=== PATIENT | male | born 1960 | race Caucasian/White ===

== ENCOUNTER 2021-08-11 12:04 | Inpatient (IN) | payer OTHER ==
[2021-08-11] MEDS ORDERED: ACETAMINOPHEN TAB 500 MG TAB PO STA (12:22)
--- NOTE | 2021-08-11 12:24 | ED ---
General Adult HPI - General Stated complaint: Detox, SOB, possible Covid Time Seen by Provider: 08/11/21 12:05 Source: patient, RN notes reviewed, old records reviewed - History of Present Illness Initial comments: This is a 61-year-old male who presents emergency Department complaining of being short of breath and coughing up blood for the last month or 2. Patient states he is a heavy drinker and went to rehab today but because of his symptoms a sent to the emergency department. Patient states she also continues to smoke. Patient states she supposed to be on Xarelto for previous blood clots and he takes blood pressure medications. Patient states he does not take any of his medications at all when he is drinking and he has been drinking quite a bit with his last drink sometime this morning. Patient denies any chest pain or palpitations. Patient states he has been coughing quite a bit and again occasionally coughs up some blood. Patient also states he's been somewhat short of breath especially with some exertion. Patient states ambulance told me 101 fever even though we do not have a fever in the emergency room. Patient denies any abdominal pain he denies nausea vomiting. Patient denies diarrhea. While lying in bed right now he states he just doesn't feel good and overall has no specific area of pain. - Related Data Allergies Allergy/AdvReac Type Severity Reaction Status Date / Time No Known Allergies Allergy Verified 08/11/21 13:25 Review of Systems ROS Statement: Those systems with pertinent positive or pertinent negative responses have been documented in the HPI. ROS Other: All systems not noted in ROS Statement are negative. General Exam - General Exam Comments Initial Comments: GENERAL: Patient is well-developed and well-nourished. Patient is nontoxic and well- hydrated and is in no acute distress. Patient smells of alcohol. ENT: Neck is soft and supple. No significant lymphadenopathy is noted. Oropharynx is clear. Moist mucous membranes. Neck has full range of motion without eliciting any pain. EYES: The sclera were anicteric and conjunctiva were pink and moist. Extraocular movements were intact and pupils were equal round and reactive to light. Eyelids were unremarkable. PULMONARY: Unlabored respirations. Good breath sounds bilaterally. No audible rales rhonchi or wheezing was noted. CARDIOVASCULAR: There is a regular rate and rhythm without any murmurs gallops or rubs. ABDOMEN: Soft and nontender with normal bowel sounds. SKIN: Skin is clear with no lesions or rashes and otherwise unremarkable. NEUROLOGIC: Patient is alert and oriented x3. Cranial nerves II through XII are grossly intact. Motor and sensory are also intact. Normal speech, volume and content. Symmetrical smile. MUSCULOSKELETAL: Normal extremities with adequate strength and full range of motion. LYMPHATICS: No significant lymphadenopathy is noted PSYCHIATRIC: Normal psychiatric evaluation. Course Vital Signs 08/11/21 08/11/21 08/11/21 12:06 12:10 13:53 Temperature 98.3 F Pulse Rate 104 H 93 Respiratory 24 26 H 20 Rate Blood Pressure 159/101 142/99 O2 Sat by Pulse 88 L 93 L Oximetry Medical Decision Making - Medical Decision Making EKG shows normal sinus rhythm at 96 bpm MI interval 162 QRS is 98 QT interval 344 QTC is 434. Patient's EKG shows no ST segment elevation or depression. Patient was still oxygenating to 87-88% on room air. Patient received multiple reading treatments and steroids. Patient was still very short of breath. Patient's CT of the chest showed no acute abnormality. Chest x-ray showed no acute abnormality. Patient will he admitted for COPD exacerbation. I spoke with some physicians agreed to admit the patient admitted the patient wrote admitting orders. - Lab Data Result diagrams: 08/11/21 13:25 08/11/21 12:56 Lab Results 08/11/21 08/11/21 08/11/21 Range/Units 12:46 12:56 12:56 WBC (3.8-10.6) k/uL RBC (4.30-5.90) m/uL Hgb (13.0-17.5) gm/dL Hct (39.0-53.0) % MCV (80.0-100.0) fL MCH (25.0-35.0) pg MCHC (31.0-37.0) g/dL RDW (11.5-15.5) % Plt Count (150-450) k/uL MPV Neutrophils % % Lymphocytes % % Monocytes % % Eosinophils % % Basophils % % Neutrophils # (1.3-7.7) k/uL Lymphocytes # (1.0-4.8) k/uL Monocytes # (0-1.0) k/uL Eosinophils # (0-0.7) k/uL Basophils # (0-0.2) k/uL Macrocytosis PT 10.2 (9.0-12.0) sec INR 0.9 (<1.2) APTT 25.0 (22.0-30.0) sec D-Dimer 1.73 H (<0.60) mg/L FEU Sodium 140 (137-145) mmol/L Potassium 4.3 (3.5-5.1) mmol/L Chloride 106 (98-107) mmol/L Carbon Dioxide 21 L (22-30) mmol/L Anion Gap 13 mmol/L BUN 10 (9-20) mg/dL Creatinine 0.81 (0.66-1.25) mg/dL Est GFR (CKD-EPI)AfAm >90 (>60 ml/min/1.73 sqM) Est GFR (CKD-EPI)NonAf >90 (>60 ml/min/1.73 sqM) Glucose 111 H (74-99) mg/dL Plasma Lactic Acid Lopez (0.7-2.0) mmol/L Calcium 8.7 (8.4-10.2) mg/dL Magnesium 1.7 (1.6-2.3) mg/dL Total Bilirubin 0.5 (0.2-1.3) mg/dL AST 87 H (17-59) U/L ALT 77 H (4-49) U/L Alkaline Phosphatase 100 (38-126) U/L Troponin I (0.000-0.034) ng/mL Total Protein 8.1 (6.3-8.2) g/dL Albumin 4.2 (3.5-5.0) g/dL Urine Color Urine Appearance (Clear) Urine pH (5.0-8.0) Ur Specific Hamlin (1.001-1.035) Urine Protein (Negative) Urine Glucose (UA) (Negative) Urine Ketones (Negative) Urine Blood (Negative) Urine Nitrite (Negative) Urine Bilirubin (Negative) Urine Urobilinogen (<2.0) mg/dL Ur Leukocyte Esterase (Negative) Urine RBC (0-5) /hpf Urine WBC (0-5) /hpf Hyaline Casts (0-2) /lpf Urine Mucus (None) /hpf Serum Alcohol 114 mg/dL Influenza Type A (PCR) Not Detected (Not Detectd) Influenza Type B (PCR) Not Detected (Not Detectd) RSV (PCR) Not Detected (Not Detectd) SARS-CoV-2 (PCR) Not Detected (Not Detectd) 08/11/21 08/11/21 08/11/21 Range/Units 12:56 12:57 13:25 WBC 6.2 (3.8-10.6) k/uL RBC 5.24 (4.30-5.90) m/uL Hgb 17.9 H (13.0-17.5) gm/dL Hct 53.2 H (39.0-53.0) % MCV 101.5 H (80.0-100.0) fL MCH 34.1 (25.0-35.0) pg MCHC 33.6 (31.0-37.0) g/dL RDW 14.1 (11.5-15.5) % Plt Count 150 (150-450) k/uL MPV 8.5 Neutrophils % 64 % Lymphocytes % 22 % Monocytes % 6 % Eosinophils % 4 % Basophils % 1 % Neutrophils # 4.0 (1.3-7.7) k/uL Lymphocytes # 1.4 (1.0-4.8) k/uL Monocytes # 0.4 (0-1.0) k/uL Eosinophils # 0.3 (0-0.7) k/uL Basophils # 0.1 (0-0.2) k/uL Macrocytosis Slight PT (9.0-12.0) sec INR (<1.2) APTT (22.0-30.0) sec D-Dimer (<0.60) mg/L FEU Sodium (137-145) mmol/L Potassium (3.5-5.1) mmol/L Chloride (98-107) mmol/L Carbon Dioxide (22-30) mmol/L Anion Gap mmol/L BUN (9-20) mg/dL Creatinine (0.66-1.25) mg/dL Est GFR (CKD-EPI)AfAm (>60 ml/min/1.73 sqM) Est GFR (CKD-EPI)NonAf (>60 ml/min/1.73 sqM) Glucose (74-99) mg/dL Plasma Lactic Acid Lopez (0.7-2.0) mmol/L Calcium (8.4-10.2) mg/dL Magnesium (1.6-2.3) mg/dL Total Bilirubin (0.2-1.3) mg/dL AST (17-59) U/L ALT (4-49) U/L Alkaline Phosphatase (38-126) U/L Troponin I <0.012 (0.000-0.034) ng/mL Total Protein (6.3-8.2) g/dL Albumin (3.5-5.0) g/dL Urine Color Light Yellow Urine Appearance Clear (Clear) Urine pH 5.0 (5.0-8.0) Ur Specific Hamlin 1.009 (1.001-1.035) Urine Protein 1+ H (Negative) Urine Glucose (UA) Negative (Negative) Urine Ketones Negative (Negative) Urine Blood Negative (Negative) Urine Nitrite Negative (Negative) Urine Bilirubin Negative (Negative) Urine Urobilinogen <2.0 (<2.0) mg/dL Ur Leukocyte Esterase Negative (Negative) Urine RBC <1 (0-5) /hpf Urine WBC <1 (0-5) /hpf Hyaline Casts 3 H (0-2) /lpf Urine Mucus Rare H (None) /hpf Serum Alcohol mg/dL Influenza Type A (PCR) (Not Detectd) Influenza Type B (PCR) (Not Detectd) RSV (PCR) (Not Detectd) SARS-CoV-2 (PCR) (Not Detectd) 08/11/21 Range/Units 13:25 WBC (3.8-10.6) k/uL RBC (4.30-5.90) m/uL Hgb (13.0-17.5) gm/dL Hct (39.0-53.0) % MCV (80.0-100.0) fL MCH (25.0-35.0) pg MCHC (31.0-37.0) g/dL RDW (11.5-15.5) % Plt Count (150-450) k/uL MPV Neutrophils % % Lymphocytes % % Monocytes % % Eosinophils % % Basophils % % Neutrophils # (1.3-7.7) k/uL Lymphocytes # (1.0-4.8) k/uL Monocytes # (0-1.0) k/uL Eosinophils # (0-0.7) k/uL Basophils # (0-0.2) k/uL Macrocytosis PT (9.0-12.0) sec INR (<1.2) APTT (22.0-30.0) sec D-Dimer (<0.60) mg/L FEU Sodium (137-145) mmol/L Potassium (3.5-5.1) mmol/L Chloride (98-107) mmol/L Carbon Dioxide (22-30) mmol/L Anion Gap mmol/L BUN (9-20) mg/dL Creatinine (0.66-1.25) mg/dL Est GFR (CKD-EPI)AfAm (>60 ml/min/1.73 sqM) Est GFR (CKD-EPI)NonAf (>60 ml/min/1.73 sqM) Glucose (74-99) mg/dL Plasma Lactic Acid Lopez 1.4 (0.7-2.0) mmol/L Calcium (8.4-10.2) mg/dL Magnesium (1.6-2.3) mg/dL Total Bilirubin (0.2-1.3) mg/dL AST (17-59) U/L ALT (4-49) U/L Alkaline Phosphatase (38-126) U/L Troponin I (0.000-0.034) ng/mL Total Protein (6.3-8.2) g/dL Albumin (3.5-5.0) g/dL Urine Color Urine Appearance (Clear) Urine pH (5.0-8.0) Ur Specific Hamlin (1.001-1.035) Urine Protein (Negative) Urine Glucose (UA) (Negative) Urine Ketones (Negative) Urine Blood (Negative) Urine Nitrite (Negative) Urine Bilirubin (Negative) Urine Urobilinogen (<2.0) mg/dL Ur Leukocyte Esterase (Negative) Urine RBC (0-5) /hpf Urine WBC (0-5) /hpf Hyaline Casts (0-2) /lpf Urine Mucus (None) /hpf Serum Alcohol mg/dL Influenza Type A (PCR) (Not Detectd) Influenza Type B (PCR) (Not Detectd) RSV (PCR) (Not Detectd) SARS-CoV-2 (PCR) (Not Detectd) Critical Care Time Critical Care Time: Yes Total Critical Care Time: 35 Disposition Clinical Impression: Alcohol abuse, COPD exacerbation Disposition: ADMITTED IP TO THIS HOSP Referrals: Nonstaff,Physician [Primary Care Provider] - 1-2 days Time of Disposition: 16:19
[2021-08-11] MEDS: SODIUM CHLORIDE 0.9% 500 ML 500 ML IV SCH ×2 (13:24→16:00)
[2021-08-11 13:33] LABS: Appearance,Urine Clear (Clear); Bilirubin,Urine Negative (Negative); Blood,Urine Negative (Negative); Color,Urine Light Yellow; Glucose,Urine (UA) Negative (Negative); Hyaline Casts,Urine 3 /lpf (0-2); Ketones,Urine Negative (Negative); Leukocyte Esterase,Urine Negative (Negative); Mucus,Urine Rare /hpf; Nitrite,Urine Negative (Negative); Protein,Urine 1+ (Negative); RBC,Urine <1 /hpf (0-5); Specific Gravity,Urine 1.009 (1.001-1.035); Urobilinogen,Urine <2.0 mg/dL (<2.0); WBC,Urine <1 /hpf (0-5)
[2021-08-11 13:43] LABS: Basophils # (A) 0.1 k/uL (0-0.2); Basophils % (A) 1 %; Eosinophils # (A) 0.3 k/uL (0-0.7); Eosinophils % (A) 4 %; HCT 53.2 % (39.0-53.0); HGB 17.9 gm/dL (13.0-17.5); Lymphocytes # (A) 1.4 k/uL (1.0-4.8); Lymphocytes % (A) 22 %; MCH 34.1 pg (25.0-35.0); MCHC 33.6 g/dL (31.0-37.0); MCV 101.5 fL (80.0-100.0); Macrocytosis Slight; Mean Platelet Volume 8.5; Monocytes # (A) 0.4 k/uL (0-1.0); Monocytes % (A) 6 %; Neutrophils % (A) 64 %; Platelet Count 150 k/uL (150-450); RBC 5.24 m/uL (4.30-5.90); RDW 14.1 % (11.5-15.5); WBC 6.2 k/uL (3.8-10.6)
--- NOTE | 2021-08-11 13:45 | XR ---
EXAMINATION TYPE: XR chest 2V DATE OF EXAM: 08/11/2021 COMPARISON: NONE HISTORY: Fever, cough, shortness of breath TECHNIQUE: Frontal and lateral views of the chest are obtained. FINDINGS: Cardiomegaly is present. Somewhat low lung volumes. Some increased reticular markings bila terally. No pleural effusion or pneumothorax noted. The osseous structures are intact. IMPRESSION: Cardiomegaly and low lung volumes with reticular increased markings could reflect early edema and/or atypical infiltrates. Correlate clinically. Correlation with old outside x-ray would be beneficial.
[2021-08-11 13:59] LABS: ALT 77 U/L (4-49); AST 87 U/L (17-59); African American GFR (CKD) >90 (>60 ml/min/1.73 sqM); Albumin 4.2 g/dL (3.5-5.0); Alkaline Phosphatase 100 U/L (38-126); Anion Gap 13 mmol/L; Blood Urea Nitrogen 10 mg/dL (9-20); Calcium 8.7 mg/dL (8.4-10.2); Carbon Dioxide 21 mmol/L (22-30); Chloride 106 mmol/L (98-107); Glucose 111 mg/dL (74-99); Magnesium 1.7 mg/dL (1.6-2.3); Non-African American GFR(CKD) >90 (>60 ml/min/1.73 sqM); Potassium 4.3 mmol/L (3.5-5.1); Sodium 140 mmol/L (137-145); Total Bilirubin 0.5 mg/dL (0.2-1.3); Total Protein 8.1 g/dL (6.3-8.2)
[2021-08-11 14:06] LABS: Alcohol 114 mg/dL
[2021-08-11 15:07] LABS: INR 0.9 (<1.2); Prothrombin Time 10.2 sec (9.0-12.0)
--- NOTE | 2021-08-11 15:55 | CT ---
EXAMINATION TYPE: CT chest angio for PE DATE OF EXAM: 08/11/2021 COMPARISON: None HISTORY: Shortness of breath. CT DLP: 547 mGycm CONTRAST: CT chest with contrast and 3D reconstruction with MIP imaging is performed with IV Contrast, patient injected with 100 mL of Isovue 370. Contrast-enhanced CT of the chest was performed through the course of the pulmonary arteries with sanjay g and mediastinal window settings submitted. 3D reconstruction with MIP imaging was also performed. PULMONARY ARTERIES: The pulmonary arteries and their major tributaries are patent. I do not see chilo dence for sizable filling defect to suggest pulmonary embolic process. LUNGS: Subpleural fibrosis noted. Scattered emphysematous change. The lungs are clear and free of inf iltrate. No evidence for atelectasis. No pulmonary nodule or mass is detected. No pleural effusion . MEDIASTINUM: Thoracic aorta is of normal caliber,however, evaluation is limited given timing of the contrast bolus. If there is concern for thoracic aortic pathology consider RIANNA. Correlate clinicall y . The heart is not enlarged. No evidence for mediastinal mass. No mediastinal lymph nodes greater than 1cm. HILAR STRUCTURES: No evidence for mass. No hilar lymph nodes greater than 1 cm. UPPER ABDOMEN: No significant abnormality is seen. IMPRESSION: 1. No evidence for Pulmonary embolism at this time.
[2021-08-11] MEDS ORDERED: ALBUTEROL NEBULIZED 2.5 MG/3 ML INHALATION STA (16:16)
[2021-08-11] MEDS ORDERED: IPRATROPIUM 0.5 MG/2.5 ML NEBU INHALATION STA (16:17)
[2021-08-11] MEDS ORDERED: methylPREDNISolone SOD SUCCI 125 MG/2 ML VIAL IV STA (16:17)
[2021-08-11] MEDS ORDERED: LORazepam 2 MG/ML INJ IV PRN (16:17)
[2021-08-11] MEDS ORDERED: THIAMINE 100 MG/ML 2 ML VIAL IM STA (16:17)
[2021-08-11] MEDS ORDERED: LORazepam 2 MG/ML INJ IV STA (16:17)
[2021-08-11] MEDS ORDERED: IPRATROPIUM-ALBUTEROL 3 ML NEB INHALATION PRN (16:20)
[2021-08-11] MEDS ORDERED: RIVAROXABAN 10 MG TAB PO SCH (17:30)
[2021-08-11] MEDS: methylPREDNISolone SOD SUCCI 125 MG/2 ML VIAL IV SCH ×2 (17:34→23:56)
--- NOTE | 2021-08-11 17:49 | P.HPIM ---
<Baldev Brown - Last Filed: 08/11/21 17:21> History of Present Illness H&P Date: 08/11/21 Chief Complaint: Shortness of Breath and Hemoptysis History of Presenting Illness: Patient is a very pleasant 61-year-old male with a past medical history of COPD, hypertension, history of DVT on anticoagulation with Xarelto, daily EtOH use/abuse drinking a minimum of one fifth of vodka daily for greater than 2 years, and nicotine dependence smoking 1-1.5 packs of cigarettes daily. Patient presented to the emergency department with a chief complaint of shortness of breath and hemoptysis. Patient reported that he went to rehab today because he has never detoxed from alcohol before and does not know where to begin and would like some assistance. Patient states when he told the intake crew at the rehab that he had been experiencing progressively worsening shortness of breath over the past couple months accompanied by cough and hemoptysis, he was sent to the emergency department for further evaluation/medical clearance and assistance with detox prior to returning to rehabilitation Center. Patient reports shortness of breath is increased with exertion and reports he has noticed increased swelling in his lower extremities and abdomen. He denies recent known fevers, exposure to known ill contacts, or infections. He denies any recent weight loss or night sweats. Patient also denies experiencing any headache, lightheadedness, dizziness, chest pain, palpitations, abdominal pain, nausea, vomiting, or experiencing any numbness/tingling/weakness in his extremities. Patient is on anticoagulation with Xarelto, but questionable whether or not the re has been continuous medication compliance. Patient reports following closely with his PCP Dr. Morin. In the emergency department patient was seen and fully evaluated. He was found to be hypoxic at 88% requiring oxygen supplementation of 6 L before reaching SpO2 greater than 92%. A chest x-ray was completed showing cardiomegaly with low lung volumes with reticular increased markings possibly reflecting early edema and/or atypical infiltrates. CTA chest negative for acute pulmonary embolism. Laboratory workup revealing elevated d-dimer 1.73, polycythemia with hemoglobin of 17.9, slight elevation in AST of 87 and ALT 77, and serum alcohol of 114. Influenza A & B, RSV, and COVID PCRs all NEGATIVE. EKG showing normal sinus rhythm and troponin less than 0.012. Patient was given loading dose of methylprednisone and started on Cefdiner. He was then admitted under our services for COPD exacerbation, hemoptysis, and EtOH intoxication pending withdrawal. Consult placed to pulmonology. Review of systems: Pertinent positives and negatives as discussed in HPI, a complete review of systems was performed and all other systems are negative. Physical exam: Vital signs reviewed and stable. General: Nontoxic, no distress and appears stated age. Morbidly obese. Derm: Skin warm and dry, normal coloration for ethnicity.Venous stasis dermatitis. Head: Atraumatic, normocephalic and symmetric. Eyes: EOMs intact, no lid lag, and anicteric sclera Mouth: No lip lesions, mucus membranes moist Cardiovascular: regular rate and rhythm with normal S1S2, no murmur, positive posterior tibial pulses bilaterally, and cap refill < 2 seconds. Bilateral lower extremity edema 2+ pitting with venous stasis discoloration. Lungs: Respirations even, regular, and unlabored on room air. Lungs diminished, however no rhonchi, no rales, no wheezing, and no accessory muscle usage. Patient currently on 6 L O2 via nasal cannula with SpO2 91-93%. Abdominal: Obese abdomen, taught, nontender to palpation, no guarding, no appreciable organomegaly Ext: ROM intact. No gross muscle atrophy, no contractures. Neuro: Speech clear, face symmetrical and CN II-XII grossly intact with no noted focal neuro deficits Psych: Alert and oriented to person, place, time, and situation. Appropriate and pleasant affect. Assessment and Plan of Care: Acute on chronic respiratory failure with hypoxia secondary to COPD exacerbation in patient with continued nicotine use Hemoptysis -Oxygenation to be administered and titrated as needed to maintain SPO2 equal to or greater than 92% -Telemetry monitoring. -Close monitoring of Pulse-oximetry -Duonebs scheduled and as needed for SOB and/or wheezing -Incentive Spirometry -Steroids: Solu-Medrol -Antibiotics: Cefdinir -Consult to pulmonology -Continue to educate and encourage on the benefits of smoking cessation and the risks of continued use. Alcohol intoxication with impending withdrawal -[facility] Protocol with symptom triggered medication management with benzodiazepines. -Thiamine 100 mg twice a day -Multivitamin daily -Folate 1 mg daily -Seizure, fall, aspiration, and elopement precautions in place. -Urine drug screen -Continued close monitoring of electrolytes and replace as needed. -Telemetry monitoring. Elevated d-dimer -CTA chest negative for PE. -Bilateral lower extremity Dopplers to be completed. -Patient to continue anticoagulation with Xarelto. Bilateral lower extremity edema with venous stasis dermatitis History of DVT on anticoagulation with Xarelto -Continue anticoagulation with Xarelto -Bilateral lower extremity Venous Dopplers Hypertension -Continue daily medication regimen with amlodipine and lisinopril. Hyperlipidemia -Continue daily medication regimen with atorvastatin. Polycythemia -Hemoglobin 17.9, likely secondary to COPD and continued nicotine use. -We will continue to monitor with repeat a.m. labs. Elevated liver enzymes -Slightly elevated AST of 87 and ALT of 77, likely secondary to daily EtOH use/abuse patient confirms drinking a minimum of one fifth of vodka daily for greater than 2 years. -We will continue to monitor with repeat a.m. labs. -Continue to encourage and educate patient on the importance of alcohol cessation and the risks associated with continued use. CODE STATUS: Full code DVT prophylaxis: Xarelto Discussed with: Patient Anticipated discharge date: Clinical course to determine Anticipated discharge place: Home A total of 45 minutes was spent on the care of this complex patient more than 50% of the time was spent in counseling and care coordination. Past Medical History Past Medical History: Asthma, Hyperlipidemia, Hypertension History of Any Multi-Drug Resistant Organisms: None Reported Past Surgical History: Ear Surgery, Hernia Repair Past Psychological History: Anxiety, Bipolar, Depression Smoking Status: Current every day smoker Past Alcohol Use History: Abuse Past Drug Use History: Heroin, Opiates Medications and Allergies Home Medications Medication Instructions Recorded Confirmed Type Albuterol Sulfate [Proair Hfa] 2 puff INHALATION RT-QID PRN 08/11/21 08/11/21 History Atorvastatin [Lipitor] 40 mg PO DAILY 08/11/21 08/11/21 History Buprenorphine HCl/Naloxone HCl 1 film SL BID 08/11/21 08/11/21 History [Suboxone 8 mg-2 mg Sl Film] Furosemide [Lasix] 40 mg PO BID 08/11/21 08/11/21 History Gabapentin 600 mg PO TID 08/11/21 08/11/21 History Rivaroxaban [Xarelto] 10 mg PO DAILY 08/11/21 08/11/21 History amLODIPine [Norvasc] 10 mg PO DAILY 08/11/21 08/11/21 History lisinopriL 40 mg PO DAILY 08/11/21 08/11/21 History Allergies Allergy/AdvReac Type Severity Reaction Status Date / Time No Known Allergies Allergy Verified 08/11/21 16:33 Physical Exam Vitals: Vital Signs Temp Pulse Resp BP Pulse Ox 08/11/21 13:53 93 20 142/99 93 L 08/11/21 12:10 26 H 08/11/21 12:06 98.3 F 104 H 24 159/101 88 L Intake and Output 08/11/21 08/11/21 08/11/21 06:59 14:59 22:59 Other: Weight 100.698 kg Results CBC & Chem 7: 08/11/21 13:25 08/11/21 12:56 Labs: Abnormal Lab Results - Last 24 Hours (Table) 08/11/21 08/11/21 08/11/21 Range/Units 12:56 12:56 12:57 Hgb (13.0-17.5) gm/dL Hct (39.0-53.0) % MCV (80.0-100.0) fL D-Dimer 1.73 H (<0.60) mg/L FEU Carbon Dioxide 21 L (22-30) mmol/L Glucose 111 H (74-99) mg/dL AST 87 H (17-59) U/L ALT 77 H (4-49) U/L Urine Protein 1+ H (Negative) Hyaline Casts 3 H (0-2) /lpf Urine Mucus Rare H (None) /hpf 08/11/21 Range/Units 13:25 Hgb 17.9 H (13.0-17.5) gm/dL Hct 53.2 H (39.0-53.0) % MCV 101.5 H (80.0-100.0) fL D-Dimer (<0.60) mg/L FEU Carbon Dioxide (22-30) mmol/L Glucose (74-99) mg/dL AST (17-59) U/L ALT (4-49) U/L Urine Protein (Negative) Hyaline Casts (0-2) /lpf Urine Mucus (None) /hpf <Cherelle Perkins - Last Filed: 08/11/21 17:54> Physical Exam Osteopathic Statement: *. No significant issues noted on an osteopathic structural exam other than those noted in the History and Physical/Consult. Vitals: Vital Signs Temp Pulse Resp BP Pulse Ox 08/11/21 17:40 100 20 160/99 92 L 08/11/21 16:05 102 H 22 139/83 93 L 08/11/21 15:00 90 20 143/84 93 L 08/11/21 13:53 93 20 142/99 93 L 08/11/21 12:10 26 H 08/11/21 12:06 98.3 F 104 H 24 159/101 88 L Intake and Output 08/11/21 08/11/21 08/11/21 06:59 14:59 22:59 Other: Weight 100.698 kg Results CBC & Chem 7: 08/11/21 13:25 08/11/21 12:56 Labs: Abnormal Lab Results - Last 24 Hours (Table) 08/11/21 08/11/21 08/11/21 Range/Units 12:56 12:56 12:57 Hgb (13.0-17.5) gm/dL Hct (39.0-53.0) % MCV (80.0-100.0) fL D-Dimer 1.73 H (<0.60) mg/L FEU Carbon Dioxide 21 L (22-30) mmol/L Glucose 111 H (74-99) mg/dL AST 87 H (17-59) U/L ALT 77 H (4-49) U/L Urine Protein 1+ H (Negative) Hyaline Casts 3 H (0-2) /lpf Urine Mucus Rare H (None) /hpf 08/11/21 Range/Units 13:25 Hgb 17.9 H (13.0-17.5) gm/dL Hct 53.2 H (39.0-53.0) % MCV 101.5 H (80.0-100.0) fL D-Dimer (<0.60) mg/L FEU Carbon Dioxide (22-30) mmol/L Glucose (74-99) mg/dL AST (17-59) U/L ALT (4-49) U/L Urine Protein (Negative) Hyaline Casts (0-2) /lpf Urine Mucus (None) /hpf Assessment and Plan Assessment: Patient seen and examined independently. Patient was also seen by Santy Stanton and case was discussed. I am in agreement with subjective, physical exam, assessment and plan as written above and amended below. Add echocardiogram to rule out heart failure General: [non toxic], [no distress], [appears at stated age] Derm: [warm], [dry] Head: [atraumatic], [normocephalic], [symmetric] Eyes: [EOMI], [no lid lag], [anicteric sclera] Mouth: [no lip lesion], [mucus membranes dry] Cardiovascular: [S1S2 reg], [no murmur], [positive posterior tibial pulse bilateral], Lungs: [CTA bilateral], [no rhonchi, no rales] , [no accessory muscle use] Abdominal: [soft], [ distended], [no guarding], [no appreciable organomegaly] Ext: [no gross muscle atrophy], [+1 pitting edema in bilateral lower extremities], [no contractures] Neuro: [ CN II-XI grossly intact], [no focal neuro deficits] Psych: [Alert], [oriented], [appropriate affect]
--- NOTE | 2021-08-11 18:07 | US ---
EXAMINATION TYPE: US venous doppler duplex LE DATE OF EXAM: 08/11/2021 5:45 PM COMPARISON: NONE CLINICAL HISTORY: BLE edema. Swelling, pt states h/o DVT right leg, pt currently on blood thinners SIDE PERFORMED: Bilateral TECHNIQUE: The lower extremity deep venous system is examined utilizing real time linear array sonog tiffanie with graded compression, doppler sonography and color-flow sonography. VESSELS IMAGED: Common Femoral Vein Deep Femoral Vein Greater Saphenous Vein * Femoral Vein Popliteal Vein Small Saphenous Vein * Proximal Calf Veins (* superficial vessels) Right Leg: Probable thrombus of indeterminant age within the CFV, proximal femoral vein, duplicate f emoral vein mid, and distal/ unable to preform compressions right EIV and CFV due to pt unable to marques erate compressions Left Leg: Negative for DVT IMPRESSION: No evidence of deep vein thrombosis in the left leg. There is evidence for some chronic deep vein thrombosis in the right femoral vein
[2021-08-11] MEDS: IPRATROPIUM-ALBUTEROL 3 ML NEB INHALATION SCH (21:13)
[2021-08-11] MEDS: GABAPENTIN 300 MG CAP PO SCH (22:41)
[2021-08-11] MEDS: LORazepam 2 MG/ML INJ IV PRN (22:41)
[2021-08-11] MEDS: CEFDINIR 300 MG CAP PO SCH (23:42)
[2021-08-12 03:52] LABS: Urine Alcohol Positive (Negative); Urine Barbiturate Negative (Negative); Urine Cocaine Negative (Negative); Urine Methadone Negative (Negative); Urine Opiates Negative (Negative); Urine Phencyclidine Negative (Negative)
[2021-08-12] MEDS: methylPREDNISolone SOD SUCCI 125 MG/2 ML VIAL IV SCH ×6 (04:58→22:49)
[2021-08-12] MEDS: NICOTINE 21MG/24HR PATCH TRANSDERM SCH (04:58)
[2021-08-12] MEDS: LORazepam 2 MG/ML INJ IV PRN ×4 (05:15→18:49)
[2021-08-12] MEDS: IPRATROPIUM-ALBUTEROL 3 ML NEB INHALATION SCH ×3 (07:35→19:37)
[2021-08-12] MEDS: ATORVASTATIN 40 MG TAB PO SCH (08:18)
[2021-08-12] MEDS: THIAMINE 100 MG TAB PO SCH ×2 (08:18→17:28)
[2021-08-12] MEDS: amLODIPine 10 MG TAB PO SCH (08:18)
[2021-08-12] MEDS: lisinopriL 20 MG TAB PO SCH (08:18)
[2021-08-12] MEDS: MULTIVITAMINS, THERA 1 EACH TAB PO SCH (08:18)
[2021-08-12] MEDS: GABAPENTIN 300 MG CAP PO SCH ×3 (08:18→20:23)
[2021-08-12] MEDS: CEFDINIR 300 MG CAP PO SCH ×2 (08:18→20:23)
[2021-08-12] MEDS: FOLIC ACID 1 MG TAB PO SCH (08:18)
[2021-08-12] MEDS ORDERED: NICOTINE GUM (POLACRILEX) 2 MG GUM BUCCAL PRN (11:00)
--- NOTE | 2021-08-12 11:11 | P.PN ---
Subjective Progress Note Date: 08/12/21 History of Presenting Illness: Patient is a very pleasant 61-year-old male with a past medical history of COPD, hypertension, history of DVT on anticoagulation with Xarelto, daily EtOH use/abuse drinking a minimum of one fifth of vodka daily for greater than 2 ye ars, and nicotine dependence smoking 1-1.5 packs of cigarettes daily. Patient presented to the emergency department with a chief complaint of shortness of breath, hemoptysis, and assistance with EtOH withdrawal. Patient is on anticoagulation with Xarelto, but questionable whether or not there has been continuous medication compliance. Patient reports following closely with his PCP Dr. Morin. In the emergency department patient was seen and fully evaluated. He was found to be hypoxic at 88% requiring oxygen supplementation of 6 L before reaching SpO2 greater than 92%. A chest x-ray was completed showing cardiomegaly with low lung volumes with reticular increased markings possibly reflecting early edema and/or atypical infiltrates. CTA chest negative for acute pulmonary embolism. Laboratory workup revealing elevated d-dimer 1.73, polycythemia with hemoglobin of 17.9, slight elevation in AST of 87 and ALT 77, and serum alcohol of 114. Influenza A & B, RSV, and COVID PCRs all NEGATIVE. EKG showing normal sinus rhythm and troponin less than 0.012. Patient was given loading dose of methylprednisone and started on Cefdiner. He was then admitted under our services for COPD exacerbation, hemoptysis, and EtOH intoxication pending withdrawal. Consult placed to pulmonology. 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 Discussed with Pharmacy and pt's Xarelto increased to 20 mg daily at this time. Physical exam: Patient was seen and fully evaluated at the bedside this morning. Upon assessment this morning, patient showing obvious signs/symptoms of alcohol withdrawal. He was tachycardic and had noted tremors, slight diaphoresis, and reported visual hallucinations. He has received a total of 2 mg Ativan IVP over the past 24 hours. In addition to CIWA scale, placed order for Valium 10 mg TID scheduled to assist with withdrawal. Seizure, fall, and aspiration precautions to remain in place. Venous Doppler of right lower extremity also positive for DVT, Xarelto increased to 20 mg daily. Awaiting echocardiogram to be completed and morning labs to result. Patient otherwise stable, he remains on 5 L O2 via nasal cannula and reports continued shortness of breath, denies episodes of hemo ptysis this morning. Patient reports overall feeling jittery and shaky and "as to be expected." Patient denies having any headache, lightheadedness, dizziness, chest pain, palpitations, abdominal pain, nausea, vomiting, or experiencing any numbness/tingling/weakness in his extremities. Patient does report having a lot of acid reflux overnight and this morning. Patient given GI cocktail 1 dose and started on daily Protonix. Morning labs reviewed and were unremarkable with the exception of CBC revealing mild thrombocytopenia with platelet count 138. Vital signs reviewed and stable. General: Nontoxic, no distress and appears stated age. Morbidly obese. Derm: Skin warm and dry, normal coloration for ethnicity.Venous stasis dermatitis. Head: Atraumatic, normocephalic and symmetric. Eyes: EOMs intact, no lid lag, and anicteric sclera Mouth: No lip lesions, mucus membranes moist Cardiovascular: regular rate and rhythm with normal S1S2, no murmur, positive posterior tibial pulses bilaterally, and cap refill < 2 seconds. Bilateral lower extremity edema 2+ pitting with venous stasis dermatitis worse on right. Lungs: Respirations even, regular, and unlabored on room air. Lungs diminished, however no rhonchi, no rales, no wheezing, and no accessory muscle usage. Patient currently on 5 L O2 via nasal cannula with SpO2 91-93%. Abdominal: Obese abdomen, taught, nontender to palpation, no guarding, no appreciable organomegaly Ext: ROM intact. No gross muscle atrophy, no contractures. Neuro: Speech clear, face symmetrical and CN II-XII grossly intact with no noted focal neuro deficits Psych: Alert and oriented to person, place, time, and situation. Appropriate and pleasant affect. Assessment and Plan of Care: Acute on chronic respiratory failure with hypoxia secondary to COPD exacerbation in patient with continued nicotine use Hemoptysis -Oxygenation to be administered and titrated as needed to maintain SPO2 equal to or greater than 92% -Telemetry monitoring. -Close monitoring of Pulse-oximetry -Duonebs scheduled and as needed for SOB and/or wheezing -Incentive Spirometry -Steroids: Solu-Medrol -Antibiotics: Cefdinir -Consult to pulmonology -Continue to educate and encourage on the benefits of smoking cessation and the risks of continued use. Alcohol intoxication with impending withdrawal -Upon assessment this morning, patient tachycardiac was noted tremors, slight diaphoresis, and reports of visual hallucinations. In addition to CIWA scale added on Valium 10 mg TID scheduled to assist with withdrawal. -CIWA Protocol with symptom triggered medication management with benzod iazepines. -Thiamine 100 mg twice a day -Multivitamin daily -Folate 1 mg daily -Seizure, fall, aspiration, and elopement precautions in place. -Urine drug screen negative with the exception of urine alcohol positive -Continued close monitoring of electrolytes and replace as needed. -Telemetry monitoring. Right lower extremity DVT Elevated d-dimer Bilateral lower extremity edema with venous stasis dermatitis -CTA chest negative for PE. 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 -Discussed with Pharmacy and pt's Xarelto increased to 20 mg daily at this time. Thrombocytopenia -Likely secondary to daily anticoagulant use with Xarelto, we will continue to monitor with repeat a.m. labs. Hypertension -Continue daily medication regimen with amlodipine and lisinopril. Hyperlipidemia -Continue daily medication regimen with atorvastatin. Polycythemia, resolved -Hemoglobin 17.9, likely secondary to COPD and continued nicotine use. -We will continue to monitor with repeat a.m. labs. Elevated liver enzymes -Slightly elevated AST of 87 and ALT of 77, likely secondary to daily EtOH use/abuse patient confirms drinking a minimum of one fifth of vodka daily for greater than 2 years. -We will continue to monitor with repeat a.m. labs. -Continue to encourage and educate patient on the importance of alcohol cessation and the risks associated with continued use. CODE STATUS: Full code DVT prophylaxis: Xarelto Discussed with: Patient Anticipated discharge date: Clinical course to determine Anticipated discharge place: Home A total of 45 minutes was spent on the care of this complex patient more than 50% of the time was spent in counseling and care coordination. Objective - Vital Signs Vital signs: Vital Signs Temp 97.9 F 08/12/21 07:00 Pulse 94 08/12/21 07:48 Resp 18 08/12/21 07:00 BP 171/100 08/12/21 07:00 Pulse Ox 95 08/12/21 07:35 Intake & Output 08/11/21 08/12/21 08/12/21 18:59 06:59 18:59 Intake Total 700 120 Balance 700 120 Weight 100.698 kg Intake: Oral 700 120 Other: # Voids 1 - Labs CBC & Chem 7: 08/12/21 11:05 08/12/21 11:05 Labs: Abnormal Lab Results - Last 24 Hours (Table) 08/11/21 08/11/21 08/11/21 Range/Units 12:56 12:56 12:57 Hgb (13.0-17.5) gm/dL Hct (39.0-53.0) % MCV (80.0-100.0) fL D-Dimer 1.73 H (<0.60) mg/L FEU Carbon Dioxide 21 L (22-30) mmol/L Glucose 111 H (74-99) mg/dL AST 87 H (17-59) U/L ALT 77 H (4-49) U/L Urine Protein 1+ H (Negative) Hyaline Casts 3 H (0-2) /lpf Urine Mucus Rare H (None) /hpf Urine Alcohol (Negative) 08/11/21 08/11/21 Range/Units 12:57 13:25 Hgb 17.9 H (13.0-17.5) gm/dL Hct 53.2 H (39.0-53.0) % MCV 101.5 H (80.0-100.0) fL D-Dimer (<0.60) mg/L FEU Carbon Dioxide (22-30) mmol/L Glucose (74-99) mg/dL AST (17-59) U/L ALT (4-49) U/L Urine Protein (Negative) Hyaline Casts (0-2) /lpf Urine Mucus (None) /hpf Urine Alcohol Positive A (Negative)
[2021-08-12 11:22] LABS: HCT 49.9 % (39.0-53.0); HGB 16.8 gm/dL (13.0-17.5); MCH 34.1 pg (25.0-35.0); MCHC 33.7 g/dL (31.0-37.0); MCV 101.1 fL (80.0-100.0); Macrocytosis Slight; Mean Platelet Volume 8.6; Platelet Count 138 k/uL (150-450); RBC 4.93 m/uL (4.30-5.90); RDW 13.7 % (11.5-15.5)
[2021-08-12] MEDS ORDERED: MAG HYDROX/AL HYDROX/SIMETH 30 ML, HYOSCYAMINE ELIXIR 10 ML, LIDOCAINE VISCOUS 2% 10 ML PO ONE ×3 (11:30)
--- NOTE | 2021-08-12 11:46 | ECHOF ---
Referral Reason:increasing lower extremity edema MEASUREMENTS -------- HEIGHT: 162.6 cm WEIGHT: 100.7 kg BP: 171/100 IVSd: 1.3 cm (0.6 - 1.1) LVIDd: 4.8 cm (3.9 - 5.3) LVPWd: 1.1 cm (0.6 - 1.1) EDV(Teich): 107 ml IVSs: 1.2 cm LVIDs: 3.8 cm LVPWs: 1.4 cm %IVS Thck: -4 % ESV(Teich): 62 ml EF(Teich): 42 % %FS: 21 % SV(Teich): 45 ml RVIDd: 4.1 cm (< 3.3) LALs A4C: 5.7 cm LAAs A4C: 22.2 cm LAESV A-L A4C: 74 ml LAESV MOD A4C: 60 ml LALs A2C: 6.0 cm LAAs A2C: 21.8 cm LAESV A-L A2C: 67 ml LAESV MOD A2C: 64 ml LAESV(A-L): 72 ml LAESV Index (A-L): 35.17 ml/m Ao Diam: 2.8 cm (2.0 - 3.7) LA Diam: 3.2 cm (2.7 - 3.8) AV Cusp: 1.8 cm (1.5 - 2.6) EPSS: 1.3 cm MV E Ousmane: 0.82 m/s MV DecT: 142 ms MV Dec Sussex: 5.8 m/s MV A Ousmane: 1.07 m/s MV E/A Ratio: 0.77 MV PHT: 41 ms LVOT Vmax: 0.83 m/s LVOT maxP.79 mmHg AV Vmax: 1.40 m/s AV maxP.85 mmHg TR Vmax: 2.65 m/s TR maxP.10 mmHg RAP: 5.00 mmHg RVSP: 33.10 mmHg MV EF SLOPE: 47.51 mm/s (70 - 150) MV EXCURSION: 16.66 mm (> 18.000) FINDINGS -------- Sinus rhythm. This was a technically difficult study with suboptimal apical views. The left ventricular size is normal. There is mild concentric left ventricular hypertrophy. Overa ll left ventricular systolic function is low-normal with, an EF between 50 - 55 %. The right ventricle is moderately enlarged. LA is midly dilated 29-33ml/m2. The right atrium was not well visualized. 3 ml of Lumason was utilized for enhancement of images. Interatrial and interventricular septum intact. The aortic valve is trileaflet and appears structurally normal. There is no evidence of aortic regu rgitation. There is no evidence of aortic stenosis. Mild mitral regurgitation is present. Mild tricuspid regurgitation present. There is no evidence of pulmonary hypertension. The right v entricular systolic pressure, as measured by Doppler, is 33.10mmHg. There is no pulmonic regurgitation present. The aortic root size is normal. IVC Not well visulized. There is no pericardial effusion. CONCLUSIONS -------- 1. The left ventricular size is normal. 2. There is mild concentric left ventricular hypertrophy. 3. Overall left ventricular systolic function is low-normal with, an EF between 50 - 55 %. 4. The right ventricle is moderately enlarged. 5. LA is midly dilated 29-33ml/m2. 6. Mild mitral regurgitation is present. 7. Mild tricuspid regurgitation present. [employer]: Janessa Mcgregor RDCS
[2021-08-12 11:47] LABS: ALT 50 U/L (4-49); AST 42 U/L (17-59); African American GFR (CKD) >90 (>60 ml/min/1.73 sqM); Albumin 3.8 g/dL (3.5-5.0); Albumin/Globulin Ratio 1.1; Alkaline Phosphatase 88 U/L (38-126); Anion Gap 9 mmol/L; Blood Urea Nitrogen 15 mg/dL (9-20); Calcium 8.5 mg/dL (8.4-10.2); Carbon Dioxide 25 mmol/L (22-30); Chloride 103 mmol/L (98-107); Globulin 3.5 g/dL; Glucose 200 mg/dL (74-99); Magnesium 1.8 mg/dL (1.6-2.3); Non-African American GFR(CKD) >90 (>60 ml/min/1.73 sqM); Potassium 4.4 mmol/L (3.5-5.1); Sodium 137 mmol/L (137-145); Total Bilirubin 0.4 mg/dL (0.2-1.3); Total Protein 7.3 g/dL (6.3-8.2)
--- NOTE | 2021-08-12 13:00 | P.CNPUL ---
History of Present Illness Consult date: 08/12/21 Requesting physician: Cece Wynne Reason for consult: dyspnea, hypoxemia Chief complaint: Shortness of breath, cough, congestion History of present illness: This is a 61-year-old male patient with a known history of chronic right lower extremity DVT anticoagulated with Xarelto, medical noncompliance, daily alcohol use, chronic and ongoing tobacco dependence of greater than 40 years, hyper tension, hyperlipidemia. The patient resides in [place] and has a primary care doctor out of [facility]. He was trained to be admitted to [facility] for his alcoholism but he had shortness of breath and was wheezing and they found his O2 saturation at 77%. He was referred here to the emergency room for the same. His last drink was yesterday morning. Chest x-ray reveals cardiomegaly with low lung volumes. CT angiogram ruled out pulmonary embolism. There is some mild fibrotic changes. Doppler of the lower extremities ruled out DVT in the left leg. The right leg however has a probable thrombus of indeterminate age. Echocardiogram reveals preserved left ventr icular systolic function with ejection fraction 50-55%. White count 5.0. Hemoglobin 16.8. Sodium 137. Potassium 4.4. Creatinine 0.71. D-dimer 1.73. Glucose 200. Troponins negative 2. AST 42. ALT 50. Drug screen positive for urine alcohol. Serum alcohol 114. Roche virus not detected. Review of Systems REVIEW OF SYSTEMS: CONSTITUTIONAL: Denies any recent significant weight loss or weight gain. EYES: Denies change in vision. EARS, NOSE, MOUTH, THROAT: Denies headaches, denies sore throat. CARDIOVASCULAR: Denies chest pain, palpitations or syncopal episodes. RESPIRATORY: Positive for shortness of breath, cough, congestio, hemoptysis. GASTROINTESTINAL: Denies change in appetite, denies abdominal pain GENITOURINARY: Denies hematuria, denies infections. MUSKULOSKELETAL: Denies pain, denies swelling. INTEGUMENTARY: Denies rash, denies eczema. NEUROLOGICAL: Denies recent memory loss, no recent seizure activity. PSYCHIATRIC: Denies anxiety, denies depression. HEMATOLOGIC/LYMPHATIC: Denies anemia, denies enlarged lymph nodes. Past Medical History Past Medical History: Asthma, Hyperlipidemia, Hypertension History of Any Multi-Drug Resistant Organisms: None Reported Past Surgical History: Ear Surgery, Hernia Repair Past Psychological History: Anxiety, Bipolar, Depression Smoking Status: Current every day smoker Past Alcohol Use History: Abuse Past Drug Use History: Heroin, Opiates Medications and Allergies Home Medications Medication Instructions Recorded Confirmed Type Albuterol Sulfate [Proair Hfa] 2 puff INHALATION RT-QID PRN 08/11/21 08/11/21 History Atorvastatin [Lipitor] 40 mg PO DAILY 08/11/21 08/11/21 History Buprenorphine HCl/Naloxone HCl 1 film SL BID 08/11/21 08/11/21 History [Suboxone 8 mg-2 mg Sl Film] Furosemide [Lasix] 40 mg PO BID 08/11/21 08/11/21 History Gabapentin 600 mg PO TID 08/11/21 08/11/21 History Rivaroxaban [Xarelto] 10 mg PO DAILY 08/11/21 08/11/21 History amLODIPine [Norvasc] 10 mg PO DAILY 08/11/21 08/11/21 History lisinopriL 40 mg PO DAILY 08/11/21 08/11/21 History Allergies Allergy/AdvReac Type Severity Reaction Status Date / Time No Known Allergies Allergy Verified 08/11/21 16:33 Physical Exam Vitals: Vital Signs Temp Pulse Pulse Resp BP BP Pulse Ox 08/12/21 08:00 18 08/12/21 07:48 94 08/12/21 07:35 92 95 08/12/21 07:00 97.9 F 91 18 171/100 96 08/12/21 01:40 97.9 F 96 22 173/90 95 08/11/21 22:13 98.2 F 103 H 20 180/108 08/11/21 21:24 92 08/11/21 21:13 97 08/11/21 19:26 96 20 125/93 93 L 08/11/21 18:30 94 20 139/102 92 L 08/11/21 18:21 105 H 08/11/21 17:55 98 08/11/21 17:40 100 20 160/99 92 L 08/11/21 16:05 102 H 22 139/83 93 L 08/11/21 15:00 90 20 143/84 93 L 08/11/21 13:53 93 20 142/99 93 L Intake and Output 08/11/21 08/12/21 08/12/21 22:59 06:59 14:59 Intake Total 700 120 Balance 700 120 Intake: Oral 700 120 Other: # Voids 1 GENERAL EXAM: Alert, obese 61-year-old gentleman, on 5 L nasal cannula, fairly comfortable in no apparent distress. HEAD: Normocephalic. EYES: Normal reaction of pupils, equal size. NOSE: Clear with pink turbinates. THROAT: No erythema or exudates. NECK: No masses, no JVD. CHEST: No chest wall deformity. LUNGS: Equal air entry with bilateral end expiratory wheeze, diminished. CVS: S1 and S2 normal with no audible murmur, regular rhythm. ABDOMEN: No hepatosplenomegaly, normal bowel sounds, no guarding or rigidity. SPINE: No scoliosis or deformity SKIN: No rashes CENTRAL NERVOUS SYSTEM: No focal deficits, tone is normal in all 4 extremities. EXTREMITIES: There is no peripheral edema. No clubbing, no cyanosis. Peripheral pulses are intact. Results - Laboratory Findings CBC and BMP: 08/12/21 11:05 08/12/21 11:05 PT/INR, D-dimer PT 10.2 sec (9.0-12.0) 08/11/21 12:56 INR 0.9 (<1.2) 08/11/21 12:56 D-Dimer 1.73 mg/L FEU (<0.60) H 08/11/21 12:56 Abnormal lab findings: Abnormal Labs 08/11/21 08/11/21 08/11/21 12:56 12:56 12:57 Hgb Hct MCV Plt Count D-Dimer 1.73 H Carbon Dioxide 21 L Glucose 111 H AST 87 H ALT 77 H Urine Protein 1+ H Hyaline Casts 3 H Urine Mucus Rare H Urine Alcohol 08/11/21 08/11/21 08/12/21 12:57 13:25 11:05 Hgb 17.9 H Hct 53.2 H MCV 101.5 H 101.1 H Plt Count 138 L D-Dimer Carbon Dioxide Glucose AST ALT Urine Protein Hyaline Casts Urine Mucus Urine Alcohol Positive A 08/12/21 11:05 Hgb Hct MCV Plt Count D-Dimer Carbon Dioxide Glucose 200 H AST ALT 50 H Urine Protein Hyaline Casts Urine Mucus Urine Alcohol - Diagnostic Findings Chest x-ray: image reviewed CT scan - chest: image reviewed Assessment and Plan Assessment: 1 Acute hypoxic respiratory failure secondary to an acute exacerbation of chronic obstructive pulmonary disease complicated by purulent tracheobronchitis with blood-tinged sputum, mild pulmonary fibrosis 2 Chronic and ongoing heavy tobacco dependence of greater than 40 years 3 Chronic and ongoing daily alcohol use, last drink 08/11/2021, EtOH level 114 4 History of chronic right lower extremity DVT, on Xarelto in the outpatient setting, medication noncompliance 5 Obesity 6 Hypertension 7 Hyperlipidemia Plan: The patient was seen and evaluated today Chest x-ray, CAT scan and labs reviewed Continue IV Solu-Medrol, DuoNeb inhalations, Symbicort Titrate the FiO2 as tolerated Continue anticoagulant with Xarelto Antibiotics in the form of Omnicef Continue CIWA protocol, seizure precautions Educated regarding the importance of complete alcohol cessation Educated regarding the importance of complete smoking cessation NicoDerm patch in place We will continue to follow and make further recommendations based on his clinical status I, the cosigning physician, performed a history & physical examination of the patient. Lungs sounds bilateral wheeze, diminished. Maintaining good O2 saturations in the 90s on 5 L/m per nasal cannula. I discussed the assessment and plan of care with my nurse practitioner, Kenia Jacob. I attest to the above consultation as dictated by her. Time with Patient: Greater than 30
[2021-08-12] MEDS: diazePAM 5 MG TAB PO SCH ×3 (13:35→20:23)
[2021-08-12] MEDS: PANTOPRAZOLE 40 MG TABLET PO SCH (13:35)
[2021-08-12] MEDS: RIVAROXABAN 20 MG TAB PO SCH (18:14)
[2021-08-13] MEDS ORDERED: LORazepam 2 MG/ML INJ ONE (02:45)
[2021-08-13] MEDS: methylPREDNISolone SOD SUCCI 125 MG/2 ML VIAL IV SCH ×2 (05:54→13:15)
[2021-08-13] MEDS: IPRATROPIUM-ALBUTEROL 3 ML NEB INHALATION SCH ×3 (07:28→19:50)
[2021-08-13] MEDS: lisinopriL 20 MG TAB PO SCH (07:52)
[2021-08-13] MEDS: NICOTINE 21MG/24HR PATCH TRANSDERM SCH (07:52)
[2021-08-13] MEDS: LORazepam 2 MG/ML INJ IV PRN ×4 (07:52→22:29)
[2021-08-13] MEDS: CEFDINIR 300 MG CAP PO SCH ×2 (07:53→21:15)
[2021-08-13] MEDS: MULTIVITAMINS, THERA 1 EACH TAB PO SCH (07:53)
[2021-08-13] MEDS: GABAPENTIN 300 MG CAP PO SCH ×3 (07:53→21:15)
[2021-08-13] MEDS: THIAMINE 100 MG TAB PO SCH ×2 (07:53→16:37)
[2021-08-13] MEDS: amLODIPine 10 MG TAB PO SCH (07:53)
[2021-08-13] MEDS: diazePAM 5 MG TAB PO SCH ×3 (07:53→21:15)
[2021-08-13] MEDS: PANTOPRAZOLE 40 MG TABLET PO SCH (07:53)
[2021-08-13] MEDS: FOLIC ACID 1 MG TAB PO SCH (07:54)
[2021-08-13] MEDS: ATORVASTATIN 40 MG TAB PO SCH (07:54)
[2021-08-13 09:31] LABS: HGB 16.3 g/dL (13.0-17.0); MCH 32.9 pg (27.0-32.0); MCHC 32.6 g/dL (32.0-37.0); MCV 100.8 fL (80.0-97.0); Mean Platelet Volume 11.5 fL (9.5-12.2); Platelet Count 146 X 10*3/uL (140-440); RBC 4.96 X 10*6/uL (4.40-5.60); RDW 12.8 % (11.5-14.5); WBC 7.57 X 10*3/uL (4.50-10.00)
[2021-08-13 10:23] LABS: African American GFR (CKD) 110.2 (60.0-200.0); Albumin/Globulin Ratio 1.25 (1.60-3.17); Anion Gap 19.1 mmol/L (10.00-18.00); BUN/Creat Ratio 16.88 Ratio (12.00-20.00); Blood Urea Nitrogen 13.5 mg/dL (9.0-27.0); Carbon Dioxide 21.9 mmol/L (20.0-27.5); Globulin 3.2 g/dL (1.6-3.3); Magnesium 2.3 mg/dL (1.5-2.4); Non-African American GFR(CKD) 95.1 (60.0-200.0); Potassium 4.6 mmol/L (3.5-5.5); Total Bilirubin 0.4 mg/dL (0.30-1.20); Total Protein 7.2 g/dL (6.2-8.2)
--- NOTE | 2021-08-13 12:10 | P.PN ---
Subjective Progress Note Date: 08/13/21 Principal diagnosis: COPD exacerbation This is a 61-year-old male patient with a known history of chronic right lower extremity DVT anticoagulated with Xarelto, medical noncompliance, daily alcohol use, chronic and ongoing tobacco dependence of greater than 40 years, hypertension, hyperlipidemia. The patient resides in [place] and has a primary care doctor out of [facility]. He was trained to be admitted to [facility] for his alcoholism but he had shortness of breath and was wheezing and they found his O2 saturation at 77%. He was referred here to the emergency room for the same. His last drink was yesterday morning. Chest x-ray reveals cardiomegaly with low lung volumes. CT angiogram ruled out pulmonary embolism. There is some mild fibrotic changes. Doppler of the lower extremities ruled out DVT in the left leg. The right leg however has a probable thrombus of indeterminate age. Echocardiogram reveals preserved left ventricular systolic function with ejection fraction 50-55%. White count 5.0. Hemoglobin 16.8. Sodium 137. Potassium 4.4. Creatinine 0.71. D-dimer 1.73. Glucose 200. Troponins negative 2. AST 42. ALT 50. Drug screen positive for urine alcohol. Serum alcohol 114. Roche virus not detected. The patient is seen today 08/13/2021 in follow-up on the regular medical floor. He is currently awake and alert in no acute distress. Breathing a bit easier today compared to yesterday. Maintaining good O2 saturations in the 90s on 4 L/m per nasal cannula. White count 7.5. Hemoglobin 16.3. Sodium 140. Potassium 4.6. Creatinine 0.8. Glucose 126. AST 30. ALT 49. He did require Ativan earlier this morning. Remains in the CIWA protocol. Objective - Vital Signs Vital signs: Vital Signs Temp 98.1 F 08/13/21 07:00 Pulse 88 08/13/21 11:38 Resp 18 08/13/21 08:00 BP 163/96 08/13/21 07:00 Pulse Ox 94 L 08/13/21 07:00 Intake & Output 08/12/21 08/13/21 08/13/21 18:59 06:59 18:59 Intake Total 360 420 Balance 360 420 Intake: Oral 360 420 Other: # Voids 1 1 - Exam GENERAL EXAM: Alert, obese 61-year-old gentleman, on 4 L nasal cannula, fairly comfortable in no apparent distress. HEAD: Normocephalic. EYES: Normal reaction of pupils, equal size. NOSE: Clear with pink turbinates. THROAT: No erythema or exudates. NECK: No masses, no JVD. CHEST: No chest wall deformity. LUNGS: Equal air entry with faint bilateral end expiratory wheeze, diminished. CVS: S1 and S2 normal with no audible murmur, regular rhythm. ABDOMEN: No hepatosplenomegaly, normal bowel sounds, no guarding or rigidity. SPINE: No scoliosis or deformity SKIN: No rashes CENTRAL NERVOUS SYSTEM: No focal deficits, tone is normal in all 4 extremities. EXTREMITIES: There is no peripheral edema. No clubbing, no cyanosis. Peripheral pulses are intact. - Labs CBC & Chem 7: 08/13/21 06:26 08/13/21 06:26 Labs: Abnormal Lab Results - Last 24 Hours (Table) 08/13/21 08/13/21 Range/Units 06:26 06:26 MCV 100.8 H (80.0-97.0) fL MCH 32.9 H (27.0-32.0) pg Anion Gap 19.10 H (10.00-18.00) mmol/L Glucose 126 H (70-110) mg/dL Albumin/Globulin Ratio 1.25 L (1.60-3.17) g/dL Microbiology - Last 24 Hours (Table) 08/12/21 01:35 Blood Culture - Preliminary Blood No Growth after 24 hours 08/12/21 01:00 Blood Culture - Preliminary Blood No Growth after 24 hours Assessment and Plan Assessment: 1 Acute hypoxic respiratory failure secondary to an acute exacerbation of chronic obstructive pulmonary disease complicated by purulent tracheobronchitis with blood-tinged sputum, mild pulmonary fibrosis 2 Chronic and ongoing heavy tobacco dependence of greater than 40 years 3 Chronic and ongoing daily alcohol use, last drink 08/11/2021, EtOH level 114 4 History of chronic right lower extremity DVT, on Xarelto in the outpatient setting, medication noncompliance 5 Obesity 6 Hypertension 7 Hyperlipidemia Plan: The patient was seen and evaluated today Stable and cleared for discharge from the pulmonary standpoint May need to be evaluated for home O2 Complete prednisone taper starting at 40 mg daily for 4 days Add Symbicort, albuterol HFA upon discharge Continue Xarelto Complete a course antibiotics in the form of Omnicef Continue CIWA protocol, seizure precautions Plan is to transfer to [facility] upon discharge I, the cosigning physician, performed a history & physical examination of the patient. Lungs sounds with faint bilateral wheeze, diminished. Maintaining good O2 saturations in the 90s on 4 L/m per nasal cannula. I discussed the assessment and plan of care with my nurse practitioner, Kenia Jacob. I attest to the above note as dictated by her.
--- NOTE | 2021-08-13 14:47 | P.PN ---
Subjective Progress Note Date: 08/13/21 History of Presenting Illness: Patient is a very pleasant 61-year-old male with a past medical history of COPD, hypertension, history of DVT on anticoagulation with Xarelto, daily EtOH use/abuse drinking a minimum of one fifth of vodka daily for greater than 2 ye ars, and nicotine dependence smoking 1-1.5 packs of cigarettes daily. Patient presented to the emergency department with a chief complaint of shortness of breath, hemoptysis, and assistance with EtOH withdrawal. Patient is on anticoagulation with Xarelto, but questionable whether or not there has been continuous medication compliance. Patient reports following closely with his PCP Dr. Morin. In the emergency department patient was seen and fully evaluated. He was found to be hypoxic at 88% requiring oxygen supplementation of 6 L before reaching SpO2 greater than 92%. A chest x-ray was completed showing cardiomegaly with low lung volumes with reticular increased markings possibly reflecting early edema and/or atypical infiltrates. CTA chest negative for acute pulmonary embolism. Laboratory workup revealing elevated d-dimer 1.73, polycythemia with hemoglobin of 17.9, slight elevation in AST of 87 and ALT 77, and serum alcohol of 114. Influenza A & B, RSV, and COVID PCRs all NEGATIVE. EKG showing normal sinus rhythm and troponin less than 0.012. Patient was given loading dose of methylprednisone and started on Cefdiner. He was then admitted under our services for COPD exacerbation, hemoptysis, and EtOH intoxication pending withdrawal. Consult placed to pulmonology. Venous Doppler showing probable thrombus of indeterminant age within the CFV, proximal femoral vein, duplicate femoral vein mid, and distal and commercial credit portfolio manager was unable to perform compressions of right E IV and CFV due to patient's inability to tolerate; left leg negative for DVT. Discussed with Pharmacy and pt's Xarelto increased to 20 mg daily at this time. Physical exam: Patient was seen and fully evaluated at the bedside this morning. His condition is improving. He is currently on 4 L O2 via nasal cannula with SpO2 of 94%. He has received 4 mg of Ativan per CIWA protocol over the past 24 hours in addition to scheduled Valium to assist with withdrawal process. Morning labs reviewed showing complete resolution of previous thrombocytopenia, polycythemia, and elevated liver enzymes. Case management looking into drug and alcohol rehab that will take patient on oxygen as patient is likely going to need to be discharged home on oxygen secondary to his advanced stage COPD. Patient reports occasional tremors but denies having any headache, lightheadedness, dizziness, chest pain, palpitations, increased shortness of breath, abdominal pain, nausea, vomiting, numbness/tingling/weakness in extremities, or experiencing any further visual/auditory hallucinations. Vital signs reviewed and stable. General: Nontoxic, no distress and appears stated age. Morbidly obese. Derm: Skin warm and dry, normal coloration for ethnicity.Venous stasis dermatitis. Head: Atraumatic, normocephalic and symmetric. Eyes: EOMs intact, no lid lag, and anicteric sclera Mouth: No lip lesions, mucus membranes moist Cardiovascular: regular rate and rhythm with normal S1S2, no murmur, positive posterior tibial pulses bilaterally, and cap refill < 2 seconds. Bilateral lower extremity edema 2+ pitting with venous stasis dermatitis worse on right. Lungs: Respirations even, regular, and unlabored on room air. Lungs diminished, however no rhonchi, no rales, no wheezing, and no accessory muscle usage. Patient currently on 4 L O2 via nasal cannula. Abdominal: Obese abdomen, taught, nontender to palpation, no guarding, no appreciable organomegaly Ext: ROM intact. No gross muscle atrophy, no contractures. Neuro: Speech clear, face symmetrical and CN II-XII grossly intact with no noted focal neuro deficits Psych: Alert and oriented to person, place, time, and situation. Appropriate and pleasant affect. Assessment and Plan of Care: Acute on chronic respiratory failure with hypoxia secondary to COPD exacerbation in patient with continued nicotine use Hemoptysis -Oxygenation to be administered and titrated as needed to maintain SPO2 equal to or greater than 92% -Telemetry monitoring. -Close monitoring of Pulse-oximetry -Duonebs scheduled and as needed for SOB and/or wheezing -Incentive Spirometry -Steroids: Solu-Medrol -Antibiotics: Cefdinir -Pulmonology following, recommending home oxygen evaluation and follow-up outpatient in their office. -Continue to educate and encourage on the benefits of smoking cessation and the risks of continued use. Alcohol withdrawal -Continue Valium 10 mg 3 times a day scheduled. -WA Protocol with symptom triggered medication management with benzodiazepines. -Thiamine 100 mg twice a day -Multivitamin daily -Folate 1 mg daily -Seizure, fall, aspiration, and elopement precautions in place. -Urine drug screen negative with the exception of urine alcohol positive -Continued close monitoring of electrolytes and replace as needed. -Telemetry monitoring. Right lower extremity DVT Elevated d-dimer Bilateral lower extremity edema with venous stasis dermatitis -CTA chest negative for PE. -Venous Doppler showing probable thrombus of indeterminant age within the CFV, proximal femoral vein, duplicate femoral vein mid, and distal and commercial credit portfolio manager was unable to perform compressions of right E IV and CFV due to patient's inability to tolerate; left leg negative for DVT. -Xarelto increased to 20 mg daily at this time. Thrombocytopenia, resolved -Likely secondary to daily anticoagulant use with Xarelto, we will continue to monitor with repeat a.m. labs. Hypertension -Continue daily medication regimen with amlodipine and lisinopril. Hyperlipidemia -Continue daily medication regimen with atorvastatin. Polycythemia, resolved -We will continue to monitor with repeat a.m. labs. Elevated liver enzymes, resolved -We will continue to monitor with repeat a.m. labs. -Continue to encourage and educate patient on the importance of alcohol cessation and the risks associated with continued use. CODE STATUS: Full code DVT prophylaxis: Xarelto Discussed with: Patient Anticipated discharge date: Clinical course to determine Anticipated discharge place: Home A total of 45 minutes was spent on the care of this complex patient more than 50% of the time was spent in counseling and care coordination. Objective - Vital Signs Vital signs: Vital Signs Temp 98.1 F 08/13/21 07:00 Pulse 92 08/13/21 07:42 Resp 17 08/13/21 07:00 BP 163/96 08/13/21 07:00 Pulse Ox 94 L 08/13/21 07:00 Intake & Output 08/12/21 08/13/21 08/13/21 18:59 06:59 18:59 Intake Total 360 420 Balance 360 420 Intake: Oral 360 420 Other: # Voids 1 1 - Labs CBC & Chem 7: 08/13/21 06:26 08/13/21 06:26 Labs: Abnormal Lab Results - Last 24 Hours (Table) 08/12/21 08/12/21 08/13/21 Range/Units 11:05 11:05 06:26 MCV 101.1 H 100.8 H (80.0-100.0) fL MCH 32.9 H (27.0-32.0) pg Plt Count 138 L (150-450) k/uL Glucose 200 H (74-99) mg/dL ALT 50 H (4-49) U/L Microbiology - Last 24 Hours (Table) 08/12/21 01:35 Blood Culture - Preliminary Blood No Growth after 24 hours 08/12/21 01:00 Blood Culture - Preliminary Blood No Growth after 24 hours
[2021-08-13] MEDS: RIVAROXABAN 20 MG TAB PO SCH (16:36)
[2021-08-14] MEDS: IPRATROPIUM-ALBUTEROL 3 ML NEB INHALATION SCH ×3 (08:00→19:47)
[2021-08-14] MEDS: GABAPENTIN 300 MG CAP PO SCH ×3 (08:30→21:07)
[2021-08-14] MEDS: NICOTINE 21MG/24HR PATCH TRANSDERM SCH (08:30)
[2021-08-14] MEDS: CEFDINIR 300 MG CAP PO SCH ×2 (08:30→21:07)
[2021-08-14] MEDS: FOLIC ACID 1 MG TAB PO SCH (08:30)
[2021-08-14] MEDS: lisinopriL 20 MG TAB PO SCH (08:30)
[2021-08-14] MEDS: amLODIPine 10 MG TAB PO SCH (08:30)
[2021-08-14] MEDS: predniSONE 20 MG TAB PO SCH (08:30)
[2021-08-14] MEDS: PANTOPRAZOLE 40 MG TABLET PO SCH (08:30)
[2021-08-14] MEDS: ATORVASTATIN 40 MG TAB PO SCH (08:30)
[2021-08-14] MEDS: diazePAM 5 MG TAB PO SCH ×3 (08:30→21:07)
[2021-08-14] MEDS: MULTIVITAMINS, THERA 1 EACH TAB PO SCH (08:31)
[2021-08-14] MEDS: THIAMINE 100 MG TAB PO SCH ×2 (08:31→16:35)
[2021-08-14] MEDS: LORazepam 2 MG/ML INJ IV PRN ×2 (08:40→16:44)
--- NOTE | 2021-08-14 12:45 | P.PN ---
Subjective Progress Note Date: 08/14/21 Principal diagnosis: COPD exacerbation This is a 61-year-old male patient with a known history of chronic right lower extremity DVT anticoagulated with Xarelto, medical noncompliance, daily alcohol use, chronic and ongoing tobacco dependence of greater than 40 years, hypertension, hyperlipidemia. The patient resides in [place] and has a primary care doctor out of [facility]. He was trained to be admitted to [facility] for his alcoholism but he had shortness of breath and was wheezing and they found his O2 saturation at 77%. He was referred here to the emergency room for the same. His last drink was yesterday morning. Chest x-ray reveals cardiomegaly with low lung volumes. CT angiogram ruled out pulmonary embolism. There is some mild fibrotic changes. Doppler of the lower extremities ruled out DVT in the left leg. The right leg however has a probable thrombus of indeterminate age. Echocardiogram reveals preserved left ventricular systolic function with ejection fraction 50-55%. White count 5.0. Hemoglobin 16.8. Sodium 137. Potassium 4.4. Creatinine 0.71. D-dimer 1.73. Glucose 200. Troponins negative 2. AST 42. ALT 50. Drug screen positive for urine alcohol. Serum alcohol 114. Roche virus not detected. The patient is seen today 08/13/2021 in follow-up on the regular medical floor. He is currently awake and alert in no acute distress. Breathing a bit easier today compared to yesterday. Maintaining good O2 saturations in the 90s on 4 L/m per nasal cannula. White count 7.5. Hemoglobin 16.3. Sodium 140. Potassium 4.6. Creatinine 0.8. Glucose 126. AST 30. ALT 49. He did require Ativan earlier this morning. Remains in the CIWA protocol. The patient is seen today 08/14/2021 in follow-up on the regular medical floor. He is currently resting fairly comfortably in bed. Awake and alert in no acute distress. He is currently maintaining O2 saturation in the 90s on 3 L/m per nasal cannula. Afebrile. Hemodynamically stable. Cultures reveal no growth. He is continued on DuoNeb inhalations, Omnicef. NicoDerm patch in place. Anticoagulated with Xarelto. Remains in the CIWA protocol. No significant events overnight according to nursing staff. Objective - Vital Signs Vital signs: Vital Signs Temp 98.4 F 08/14/21 08:00 Pulse 92 08/14/21 12:20 Resp 18 08/14/21 08:00 BP 158/91 08/14/21 08:00 Pulse Ox 94 L 08/14/21 08:00 Intake & Output 08/13/21 08/14/21 08/14/21 18:59 06:59 18:59 Intake Total 538 240 Balance 538 240 Intake: Oral 538 240 Other: # Voids 3 3 # Bowel Movements 2 - Exam GENERAL EXAM: Alert, obese 61-year-old gentleman, on 4 L nasal cannula, fairly comfortable in no apparent distress. HEAD: Normocephalic. EYES: Normal reaction of pupils, equal size. NOSE: Clear with pink turbinates. THROAT: No erythema or exudates. NECK: No masses, no JVD. CHEST: No chest wall deformity. LUNGS: Equal air entry with faint bilateral end expiratory wheeze, diminished. CVS: S1 and S2 normal with no audible murmur, regular rhythm. ABDOMEN: No hepatosplenomegaly, normal bowel sounds, no guarding or rigidity. SPINE: No scoliosis or deformity SKIN: No rashes CENTRAL NERVOUS SYSTEM: No focal deficits, tone is normal in all 4 extremities. EXTREMITIES: There is no peripheral edema. No clubbing, no cyanosis. Peripheral pulses are intact. - Labs CBC & Chem 7: 08/13/21 06:26 08/13/21 06:26 Labs: Microbiology - Last 24 Hours (Table) 08/12/21 01:35 Blood Culture - Preliminary Blood No Growth after 48 hours 08/12/21 01:00 Blood Culture - Preliminary Blood No Growth after 48 hours Assessment and Plan Assessment: 1 Acute hypoxic respiratory failure secondary to an acute exacerbation of chronic obstructive pulmonary disease complicated by purulent tracheobronchitis with blood-tinged sputum, mild pulmonary fibrosis 2 Chronic and ongoing heavy tobacco dependence of greater than 40 years 3 Chronic and ongoing daily alcohol use, last drink 08/11/2021, EtOH level 114 4 History of chronic right lower extremity DVT, on Xarelto in the outpatient setting, medication noncompliance 5 Obesity 6 Hypertension 7 Hyperlipidemia Plan: The patient was seen and evaluated today Cleared for discharge from the pulmonary standpoint May need to be evaluated for home O2 Complete prednisone taper starting at 40 mg daily for 4 days Add Symbicort, albuterol HFA upon discharge Continue Xarelto Complete a course of antibiotics in the form of Omnicef Continue CIWA protocol, seizure precautions Plan is to transfer to [facility] upon discharge We will see as needed I, the cosigning physician, performed a history & physical examination of the patient. Lungs sounds with faint bilateral wheeze, diminished. Maintaining good O2 saturations in the 90s on 4 L/m per nasal cannula. I discussed the assessment and plan of care with my nurse practitioner, Kenia Jacob. I attest to the above note as dictated by her.
[2021-08-14 15:50] VITALS: RESP 18
--- NOTE | 2021-08-14 15:59 | P.DS ---
Providers Date of admission: 08/12/21 10:52 Expected date of discharge: 08/14/21 Attending physician: Cece Wynne DO Consults: 08/11/21 17:10 Consult Physician Routine Consulting Provider: Bertrand Hernandez Consult Reason/Comments: COPD exacerbation, hemoptysis Do you want consulting provider notified?: Yes Primary care physician: Physician Nonstaff Hospital Course: Patient is a very pleasant 61-year-old male with a past medical history of COPD, hypertension, history of DVT on anticoagulation with Xarelto, daily EtOH use/abuse drinking a minimum of one fifth of vodka daily for greater than 2 years, and nicotine dependence smoking 1-1.5 packs of cigarettes daily. Patient presented to the emergency department with a chief complaint of shortness of br eath, hemoptysis, and assistance with EtOH withdrawal. In the emergency department patient was found to be hypoxic at 88% requiring oxygen supplementation of 6 L before reaching SpO2 greater than 92%. A chest x-ray was completed showing cardiomegaly with low lung volumes with reticular increased markings possibly reflecting early edema and/or atypical infiltrates. CTA chest negative for acute pulmonary embolism. Laboratory workup revealing elevated d- dimer 1.73, polycythemia with hemoglobin of 17.9, slight elevation in AST of 87 and ALT 77, and serum alcohol of 114. Influenza A & B, RSV, and COVID PCRs all NEGATIVE. EKG showing normal sinus rhythm and troponin less than 0.012. Patient was given loading dose of methylprednisone and started on Cefdinir. He was then admitted under our services for COPD exacerbation, hemoptysis, and EtOH intoxication pending withdrawal. Consult placed to pulmonology. Venous Doppler showing probable thrombus of indeterminant age within the CFV, proximal femoral vein, duplicate femoral vein mid, and distal and moccasin sewer was unable to perform compressions of right E IV and CFV due to patient's inability to tolerate; left leg negative for DVT. Discussed with Pharmacy and pt's Xarelto increased to 20 mg daily. Acute on chronic respiratory failure with hypoxia secondary to COPD exacerbation in patient with continued nicotine use Hemoptysis -On discharge, patient was sent home with home oxygen and pulmonary follow-up per their recommendation -Steroids: Solu-Medrol, then on discharge was sent home with 40 mg by mouth prednisone daily for an additional 2 days -Antibiotics: Cefdinir, was sent home with 300 mg by mouth twice a day for an additional 2 days -Patient received nicotine cessation counseling Alcohol withdrawal -No benzodiazepines were prescribed on discharge, patient was sent to [facility] for alcohol rehabilitation -Thiamine 100 mg twice a day, taper to once a day on discharge -Multivitamin daily, prescribed on discharge -Folate 1 mg daily, prescribed on discharge Right lower extremity DVT Elevated d-dimer Bilateral lower extremity edema with venous stasis dermatitis -CTA chest negative for PE. -Venous Doppler showing probable thrombus of indeterminant age within the CFV, proximal femoral vein, duplicate femoral vein mid, and distal and moccasin sewer was unable to perform compressions of right E IV and CFV due to patient's inability to tolerate; left leg negative for DVT. -Xarelto increased to 20 mg daily on discharge Hypertension -Continued daily medication regimen with amlodipine and lisinopril. Hyperlipidemia -Continued daily medication regimen with atorvastatin. I spent 35 minutes coordinating this complex discharge Assessment: Gen: awake, alert HEENT: normocephalic, atraumatic, good hearing acuity, moist mucous membranes Resp: good air exchange, breathing comfortably with no accessory muscle use, mild end expiratory wheezing in the upper lung [place] CVS: good distal perfusion x 4, regular rate and rhythm without murmurs GI: soft, NTTP, ND : no SPT, no CVAT, mejia catheter not present MSK: no pitting edema, no clubbing Neuro: non-focal, moving all extremities Psych: cooperative, euthymic mood Patient Condition at Discharge: Good Plan - Discharge Summary New Discharge Prescriptions: New predniSONE [Deltasone] 40 mg PO DAILY #4 tab Thiamine [Vitamin B-1] 100 mg PO DAILY #30 tab Folic Acid 1 mg PO DAILY #14 tab Multivitamins, Thera [Multivitamin (formulary)] 1 each PO DAILY #14 tab Cefdinir [Omnicef] 300 mg PO BID #4 cap Rivaroxaban [Xarelto] 20 mg PO AC-SUPPER #30 tab Continue Albuterol Sulfate [Proair Hfa] 2 puff INHALATION RT-QID PRN PRN Reason: Shortness Of Breath amLODIPine [Norvasc] 10 mg PO DAILY Buprenorphine HCl/Naloxone HCl [Suboxone 8 mg-2 mg Sl Film] 1 film SL BID lisinopriL 40 mg PO DAILY Gabapentin 600 mg PO TID Furosemide [Lasix] 40 mg PO BID Atorvastatin [Lipitor] 40 mg PO DAILY Discontinued Rivaroxaban [Xarelto] 10 mg PO DAILY Discharge Medication List Albuterol Sulfate [Proair Hfa] 2 puff INHALATION RT-QID PRN 08/11/21 [History] Atorvastatin [Lipitor] 40 mg PO DAILY 08/11/21 [History] Buprenorphine HCl/Naloxone HCl [Suboxone 8 mg-2 mg Sl Film] 1 film SL BID 08/11/21 [History] Furosemide [Lasix] 40 mg PO BID 08/11/21 [History] Gabapentin 600 mg PO TID 08/11/21 [History] amLODIPine [Norvasc] 10 mg PO DAILY 08/11/21 [History] lisinopriL 40 mg PO DAILY 08/11/21 [History] Cefdinir [Omnicef] 300 mg PO BID #4 cap 08/14/21 [Rx] Folic Acid 1 mg PO DAILY #14 tab 08/14/21 [Rx] Multivitamins, Thera [Multivitamin (formulary)] 1 each PO DAILY #14 tab 08/14/21 [Rx] Rivaroxaban [Xarelto] 20 mg PO AC-SUPPER #30 tab 08/14/21 [Rx] Thiamine [Vitamin B-1] 100 mg PO DAILY #30 tab 08/14/21 [Rx] predniSONE [Deltasone] 40 mg PO DAILY #4 tab 08/14/21 [Rx] Follow up Appointment(s)/Referral(s): [facility] [NON-STAFF] - 1 Week Nonstaff,Physician [Primary Care Provider] - 1-2 days Activity/Diet/Wound Care/Special Instructions: [facility] - [phone] - call at discharge and they will pick patient up. Discharge/Stand Alone Forms: AA Meetings [place] Discharge Disposition: OTHER INSTITUTION NOT DEFINED
[2021-08-14] MEDS: RIVAROXABAN 20 MG TAB PO SCH (17:42)
[2021-08-15] MEDS ORDERED: ACETAMINOPHEN TAB 325 MG TAB PO PRN (00:57)
[2021-08-15] MEDS: IPRATROPIUM-ALBUTEROL 3 ML NEB INHALATION SCH ×2 (07:18→14:31)
[2021-08-15] MEDS: lisinopriL 20 MG TAB PO SCH (08:38)
[2021-08-15] MEDS: GABAPENTIN 300 MG CAP PO SCH (08:38)
[2021-08-15] MEDS: MULTIVITAMINS, THERA 1 EACH TAB PO SCH (08:38)
[2021-08-15] MEDS: NICOTINE 21MG/24HR PATCH TRANSDERM SCH (08:38)
[2021-08-15] MEDS: THIAMINE 100 MG TAB PO SCH (08:38)
[2021-08-15] MEDS: CEFDINIR 300 MG CAP PO SCH (08:38)
[2021-08-15] MEDS: diazePAM 5 MG TAB PO SCH (08:38)
[2021-08-15] MEDS: amLODIPine 10 MG TAB PO SCH (08:39)
[2021-08-15] MEDS: PANTOPRAZOLE 40 MG TABLET PO SCH (08:39)
[2021-08-15] MEDS: ATORVASTATIN 40 MG TAB PO SCH (08:39)
[2021-08-15] MEDS: FOLIC ACID 1 MG TAB PO SCH (08:39)
[2021-08-15] MEDS: predniSONE 20 MG TAB PO SCH (08:39)
[2021-08-15 14:36] VITALS: BP 148/83; PULSE 80; TEMP 98
== END 2021-08-15 15:00 | disposition home or self-care (01) | DRG 190 ==
LOC: EC 12:04 → 6NMEDSUR 16:22 → OBSVTOIN 08-12 10:52
PROVIDERS: ADMIT Internal Medicine; ATTEND Internal Medicine
DX: J44.1 Chronic obstructive pulmonary disease with (acute) exacerbation (principal); J96.21 Acute and chronic respiratory failure with hypoxia; F10.239 Alcohol dependence with withdrawal, unspecified; I82.501 Chronic embolism and thrombosis of unspecified deep veins of right lower extremity; Z20.822 Contact with and (suspected) exposure to COVID-19; I10 Essential (primary) hypertension; F17.210 Nicotine dependence, cigarettes, uncomplicated; F10.129 Alcohol abuse with intoxication, unspecified; I87.2 Venous insufficiency (chronic) (peripheral); J84.10 Pulmonary fibrosis, unspecified; Y90.5 Blood alcohol level of 100-119 mg/100 ml; D75.1 Secondary polycythemia; F31.9 Bipolar disorder, unspecified; F41.9 Anxiety disorder, unspecified; E78.5 Hyperlipidemia, unspecified; E66.9 Obesity, unspecified; Z71.6 Tobacco abuse counseling; Z86.718 Personal history of other venous thrombosis and embolism; Z79.01 Long term (current) use of anticoagulants; Z68.38 Body mass index [BMI] 38.0-38.9, adult; Z79.899 Other long term (current) drug therapy; Z91.14 Patient's other noncompliance with medication regimen; Z91.19 Patient's noncompliance with other medical treatment and regimen
CPT/HCPCS: 36415; 71046; 71275; 80053; 80306; 80320; 81001; 83605; 83735; 84153; 84484; 85025; 85027; 85379; 85610; 85730; 87040; 87636; 93005; 93306; 93970; 94640; 94760; 99291